=== PATIENT | female | born 1950 | race Caucasian/White ===

== ENCOUNTER → 2018-07-28 | Outpatient (CLI) | payer OTHER, BC | LOC: RAD 13:09 | DX: J45.909 Unspecified asthma, uncomplicated (principal); Z88.8 Allergy status to other drugs, medicaments and biological substances; Z88.2 Allergy status to sulfonamides; Z88.0 Allergy status to penicillin; Z91.040 Latex allergy status; Z91.041 Radiographic dye allergy status ==

== ENCOUNTER → 2020-02-14 | Outpatient (CLI) | payer OTHER, BC | LOC: RAD 09:10 | PROVIDERS: ATTEND Internal Medicine Pulmonary Disease | DX: R06.00 Dyspnea, unspecified (principal) ==

== ENCOUNTER → 2020-06-21 | Outpatient (CLI) | payer OTHER, BC | LOC: RAD 08:33 | PROVIDERS: ATTEND Pediatrics | DX: J84.9 Interstitial pulmonary disease, unspecified (principal); M35.00 Sjogren syndrome, unspecified; J98.11 Atelectasis ==

== ENCOUNTER → 2021-03-04 | Outpatient (CLI) | payer OTHER, BC | LOC: RAD 10:34 | PROVIDERS: ATTEND Pediatrics | DX: J84.9 Interstitial pulmonary disease, unspecified (principal); M35.00 Sjogren syndrome, unspecified; R06.00 Dyspnea, unspecified ==